=== PATIENT | male | born 1990 | race Caucasian/White ===

== ENCOUNTER 2022-04-04 08:41 | Outpatient (CLI) | payer BC, SELFPAY ==
[2022-04-04 15:20] LABS: Chloride* 102 mmol/L (96-114); Potassium* 4.3 mmol/L (3.6-5.1); Sodium* 137 mmol/L (135-149)
[2022-04-04 15:23] LABS: Blood Urea Nitrogen* 13 mg/dL (5-24); Carbon Dioxide* 29 mmol/L (20-32); Cholesterol* 232 mg/dL (90-199); Creatinine* 0.8 mg/dL (0.5-1.5); Estimated Glomerular Filt Rate 122 ml/min; Glucose* 91 mg/dL (60-115)
[2022-04-04 15:24] LABS: Calcium* 9.8 mg/dL (8.4-10.6); HDL Cholesterol* 45 mg/dL (>=40); LDL Cholesterol Calculated 95 mg/dL (<100); Triglycerides* 458 mg/dL (40-149)
== END 2022-04-04 08:42 | disposition home or self-care (01) ==
PROVIDERS: Visit Provider Family Medicine
DX: Z00.00 Encounter for general adult medical examination without abnormal findings (principal); M25.572 Pain in left ankle and joints of left foot; Z13.6 Encounter for screening for cardiovascular disorders
CPT/HCPCS: 80048; 80061

== ENCOUNTER 2022-04-12 19:30 | Outpatient (CLI) | payer BC, SELFPAY ==
--- NOTE | 2022-05-04 12:57 | W.PM.SLEEP ---
Sleep Study Details Details Interpreting Provider: Mj Downey MD Date of Sleep Study: 04/20/22 Sleep Study Details: STUDY TYPE:? Home ? BMI:? Not recorded ORDERING PROVIDER:? Aleksandra INDICATION:? Concerns about sleep apnea ? SLEEP SUMMARY:? 494.5 monitored minutes RESPIRATORY SUMMARY:? AHI is 9.6, left lateral 25, right lateral 36.7 Low oxygen 81 20.2% of study oxygen less than 90%, 0.3% of study oxygen less than 85% % time snoring 2.6 PERIODIC LIMB MOVEMENTS OF SLEEP:? Not recorded CARDIAC:? Range 44-101, mean 60.3 IMPRESSION:? Mild obstructive sleep apnea overall with significant desaturations RECOMMENDATION: AutoSet CPAP pressure 4-17 versus dental appliance. Once effective therapy is established would recommend an overnight oximetry study
== END 2022-04-12 19:31 | disposition home or self-care (01) ==
PROVIDERS: Visit Provider Otolaryngology
DX: G47.33 Obstructive sleep apnea (adult) (pediatric) (principal)
CPT/HCPCS: 95806